=== PATIENT | female | born 1995 | race Caucasian/White ===

== ENCOUNTER 2018-07-21 05:09 | Inpatient (IN) | payer OTHER ==
[2018-07-21] MEDS ORDERED: OXYTOCIN/LR 20 UNIT/1,000 ML BAG IV SCH (05:50)
[2018-07-21] MEDS ORDERED: LIDOCAINE 2% INJ, 20 mL 0 ML ONE (05:58)
[2018-07-21] MEDS ORDERED: CARBOPROST TROME 250 MCG/ML IM ONE (05:59)
[2018-07-21] MEDS ORDERED: METHYLERGONOVINE 0.2MG/ML AMP IM ONE (05:59)
[2018-07-21] MEDS ORDERED: Ringers Lactate 1,000 ML IV PRN (06:44)
[2018-07-21] MEDS ORDERED: Ringers Lactate 1,000 ML IV SCH (07:00)
[2018-07-21 07:30] LABS: Absolute Lymphocytes (CBC) 2.7 K/uL (0.7-4.9); Basophils % 0.3 % (0-1.3); Eosinophils % 0.2 % (0-4.4); Hematocrit 37.8 % (36.0-45.0); Lymphocytes % 21.1 % (15.3-44.8); Monocytes % 7.8 % (3.3-12.3); RBC Red Blood Cell Count 4.13 M/uL (3.86-4.86); RPR Titer ND
[2018-07-21 07:47] LABS: Blood Morphology Comment NOT SEEN (NOT SEEN); Platelet Estimate ADEQ; Platelets, Giant MANY; Urine White Blood Cell Casts OK
[2018-07-21 08:06] VITALS: BMI 3964.9
[2018-07-21] MEDS ORDERED: INFLUENZA VACCINE (for 3y+) 0.5 ML DOSE IMVAC ONE (09:00)
--- NOTE | 2018-07-21 10:37 | PREOPHP ---
Date of Admission: 07/21/2018 A 22-year-old 2, para 1, 38 weeks 6 days, came in complete and on the perineum, rupture of me mbranes, clear fluid. History and physical are unchanged from her previous appointment, anticipate r apid vaginal delivery, beta strep status unknown, but it is too late to administer medications anyway . We will get an IV stabilized and deliver. EHSAN/CLARK Voice ID: [id number]
--- NOTE | 2018-07-21 10:49 | DN ---
Surgeon: Edgar Palomares MD A 22-year-old 2, para 1, 38 weeks 6 days, came in complete and on the perineum. Rupture of m embranes. Shortly thereafter, clear fluid, second stage of about 15 minutes. Spontaneous vaginal de livery of a 6 pound 8 ounce male infant. Nuchal cord x3. Apgars 9 and 9. Klein delivery of the pl acenta, which was inspected and noted to be complete and normal. No episiotomy. No lacerations wort hy of suturing. 350 cc or less blood loss. Type and Rh, beta strep status unknown at this point. Final Diagnoses: Term intrauterine . Spontaneous vaginal delivery. Labs pending. EHSAN/CLARK Voice ID: [id number] Report ID: [id number]
--- NOTE | 2018-07-21 13:07 | PN ---
Kiara Carrillo doing quite well this morning. We will discontinue her IV and begin ambulation soon. The patient is afebrile. Lochia is normal. We went over instructions. We will go over t hat again tomorrow. Her blood type is Rh positive. Rubella status is pending. She was informed tod ay about the pain on rectal prolapse, which was completely asymptomatic. She also has large hemorrho ids. She is going to use tucks pads today. If she has any problems in the future, she knows that we will have to get her in touch with an anorectal surgeon, but this should not be surgically corrected if even needed then until she is not going to have any more babies. Full discussion. EHSAN/CLARK Voice ID: [id number] Report ID: [id number]
[2018-07-21] MEDS ORDERED: DOCUSATE NA/SENNA CONC 1 TAB PO PRN (15:06)
[2018-07-21] MEDS ORDERED: DIPHENHYDRAMINE 25 MG TAB/CAP PO PRN (15:06)
[2018-07-21] MEDS ORDERED: ACETAMINOPHEN 500 MG TAB PO PRN (15:06)
[2018-07-21] MEDS ORDERED: IBUPROFEN 200 MG TAB PO PRN (15:06)
[2018-07-21] MEDS ORDERED: Oxycodone HCl/Acetaminophen 1 TAB TAB PO PRN (15:06)
[2018-07-21] MEDS ORDERED: BISACODYL 10 MG RECTAL SUPP RECT PRN (15:06)
[2018-07-21] MEDS: Oxycodone HCl/Acetaminophen 1 TAB TAB PO PRN (15:20)
[2018-07-21 22:03] LABS: RPR (Rapid Plasma Reagin) NON-REACT (NON-REACT)
[2018-07-22] MEDS: Oxycodone HCl/Acetaminophen 1 TAB TAB PO PRN (01:10)
[2018-07-22 04:43] VITALS: TEMP 97.1
[2018-07-22 08:56] VITALS: BP 116/73
--- NOTE | 2018-07-26 15:12 | DS ---
Date of Discharge: 07/22/2018 Hospital Course: A 22-year-old 2, para 1, 38 weeks 6 days, came in active rapidly advancing labor. Delivered a 6-pound 8-ounce male infant, Apgars 9 and 9. Nuchal cord loosely x3. No episiot thelma. No lacerations. Klein delivery of the placenta, which was inspected and noted to be intact an d normal. Less than 350 cc blood loss. Beta strep negative. Rh positive, immune to Rubella. Postp artum afebrile, ambulating and voiding. Lochia is normal. She will be dismissed this morning to rep ort back to my office in 6 weeks for followup, to report any temperature elevation of 100 degrees or greater, severe pain, heavy bleeding, or any other type of abnormalities. Dismissed with tramadol fo r analgesia, although she may elect to take Motrin instead. Has been offered Tdap administration num erous times during her and again today. Final Diagnoses: Term intrauterine . Spontaneous labor and delivery, 38 weeks 6 days. Nuc yossi cord x3. Tdap offered. EHSAN/CLARK Voice ID: [id number] Report ID: [id number]
== END 2018-07-22 11:30 | disposition home or self-care (01) | DRG 806 ==
LOC: L&D 05:09 → 2ND-WC 05:43
PROVIDERS: ADMIT Specialist; ATTEND Specialist
PROC: 10E0XZZ Delivery of Products of Conception, External Approach (ICD-10-PCS; principal; 2018-07-21)
DX: O69.2XX0 Labor and delivery complicated by other cord entanglement, with compression, not applicable or unspecified (principal); O87.2 Hemorrhoids in the puerperium; Z37.0 Single live birth; Z3A.38 38 weeks gestation of pregnancy; K62.3 Rectal prolapse; O75.89 Other specified complications of labor and delivery
CPT/HCPCS: 36415; 85025; 86592; 86900; 86901; 87340; 87389; J2210